=== PATIENT | male | born 1980 | race Caucasian/White ===

== ENCOUNTER 2020-08-09 06:42 | Emergency (ER) | payer SELFPAY ==
--- NOTE | ~2020-08-09 | CT_ITS ---
EXAMINATION: CT abdomen pelvis w con DATE: 08/09/2020 08:54 INDICATION: Right mid abdominal pain. Elevated white blood cell count for several days. Constipation for 5 days. TECHNIQUE: Computed tomography (CT) of the abdomen and pelvis was performed with 100 cc Omnipaque 350 intravenous contrast. Automated exposure control and iterative reconstruction technique were employe d. Exam dose: 569.46 mGy-cm total exam DLP. COMPARISON: None. FINDINGS: 4 mm right lower lobe nodule (series 4 image 2) Normal heart size. No pericardial or pleural effusion. There are multiple small stones in the dependent aspect of the gallbladder. There is thickening/edema of the gallbladder wall, measuring greater than 6 mm maximal thickness. Findings suggest acute estephania cystitis. No intrahepatic or extrahepatic bile duct or pancreatic duct dilatation. No hepatic, splenic, pancreatic, adrenal or renal space-occupying mass lesion is detected. No urinary tract calculus or hydroureteronephrosis. The urinary bladder is unremarkable. Prostate gla nd seminal vesicles appear normal. Normal caliber of the abdominal aorta. No intraperitoneal or retroperitoneal or pelvic mass lesion or adenopathy or ascites. Normal appendix. No bowel obstruction, bowel wall thickening, pneumatosis or intraperitoneal free air . There are some sclerotic opacities of the proximal femurs and L4, likely bone islands. IMPRESSION: Cholelithiasis, thickening/edema of the gallbladder wall, suggesting acute cholecystitis Reviewed, dictated and finalized at [facility]. Reviewed, dictated and finalized at [facility]. IMPRESSION: Cholelithiasis, thickening/edema of the gallbladder wall, suggesti ng acute cholecystitis
--- NOTE | ~2020-08-09 | XR_ITS ---
EXAMINATION: XR abdomen/kub 1V EXAM DATE: 08/09/2020 07:29 INDICATION: Abdominal pain. Symptoms 2 days. TECHNIQUE: Frontal upright projection of the upper abdomen, frontal projection of the lower abdomen f or interpretation. There is no prior study for comparison. FINDINGS: There is expected amount of colonic stool and gas. No small bowel dilation, nonobstructiv e bowel gas pattern. There are no suspicious calcifications identified. There is no organomegaly suspected. The bones are unremarkable. IMPRESSION: Unremarkable abdomen x-ray exam. Reviewed, dictated and finalized at [facility].
[2020-08-09 06:59] VITALS: BP 136/82; PULSE 79; RESP 18; TEMP 37.2; O2SAT 97
--- NOTE | 2020-08-09 07:04 | ED.ABDPAIN ---
HPI - Abdominal Pain General Chief Complaint: Abdominal Pain Stated Complaint: right sided sharp pains Time Seen by Provider: 08/09/20 07:04 Source: patient and RN notes reviewed Mode of arrival: ambulatory Limitations: no limitations History of Present Illness HPI narrative: Patient has had abdominal pain on the right side of his abdomen but also points to a generalized abdominal pain. He states he has not had a bowel movement in 5 days. His pain seems to get worse in the evening and has been going on for the last 2 days. Pain is worse after eating. denies any fever chills vomiting or diarrhea. MD elicited complaint: abdominal pain Onset (ago): day(s) (2) Pain Consistency: intermittent Location: diffuse Severity: moderate Quality: cramping and fullness Radiation: none Migration to: no migration Exacerbating factors: eating Relieving factors: nothing Associated symptoms: vomiting Related Data Home Medications Medication Instructions Recorded Confirmed No Home Medications 08/09/20 08/09/20 Allergies Allergy/AdvReac Type Severity Reaction Status Date / Time No Known Allergies Allergy Verified 08/09/20 07:16 Review of Systems Constitutional: Constitutional: Denies chills and Denies fever(s) Eyes: Eyes: Reports no additional eye complaints ENT: Reports system reviewed and no additional complaints, except as documented Cardiovascular: Cardiovascular: Reports no additional cardiovascular complaints Respiratory: Respiratory: Reports no additional respiratory complaints Musculoskeletal: Musculoskeletal: Reports no additional musculoskeletal complaints Integumentary/Breasts: Skin/Breast: Reports system reviewed and no additional complaints, except as docu Neurologic: Reports system reviewed and no additional complaints, except as documented Endocrine: Endocrine: Reports no additional endocrine complaints [facility] Past Medical History Medical History (Updated 08/09/20 @ 09:38 by Jamie Almeida MD) No active medical problems Surgical History Surgical History (Updated 08/09/20 @ 09:28 by Jamie Almeida MD) H/O neck surgery Social History Social History (Updated 08/09/20 @ 09:28 by Jamie Almeida MD) Smoking packs per day: 2 Smoking cigarettes per day: 40.0 Smoking status: Current every day smoker Tobacco type: cigarettes Alcohol intake: current Alcohol use details: occasional Substance use: never Exam Const: General: healthy appearing, no acute distress and alert Nutritional Appearance: well nourished Orientation/consciousness: patient oriented x3 HENMT: Head: normal to inspection Ears: external ears normal Eyes: Conjunctivae: conjunctivae normal Pupils: Equal, round and reactive pupils present EOM: EOMs intact bilaterally Neck: Neck: normal visual inspection Resp: Effort & Inspection: normal respiratory effort Auscultation: clear to auscultation bilaterally Cardio: Rate: regular rate Rhythm: regular rhythm GI: GI Palp: Yes Soft to palpation and Yes Tenderness to palpation present (GI) Back/Spine/Pelvis: Cervical Spine: cervical ROM normal Thoracic/Lumbar Spine: thoraco-lumbar ROM normal Skin: General skin exam: normal color Rashes: no rashes Neuro: General: patient oriented x3, moves all extremities and no focal motor deficits Speech: normal speech Gait exam (Neuro): Normal gait present Extrem: General: normal to inspection and no clubbing, cyanosis or edema Psych: Appearance: grossly normal and well kempt Mental Status: mental status grossly normal Affect: normal affect Attitude: cooperative Thought content: Yes Normal thought content present Course Course Emergency Course: Patient states he absolutely has to go smoke. I discussed that if he leaves the emergency room these considered discharged. He agrees that he will leave A. His is given instructions on how to get hold of the surgeon at [facility]. Given prescriptions for Bentyl and
[2020-08-09 07:37] LABS: Basophils Absolute Auto 0.08 K/mm3 (0.00-0.10); Basophils Percent Auto 0.4 % (0.0-1.0); Eosinophils Absolute Auto 0.07 K/mm3 (0.02-0.50); Eosinophils Percent Auto 0.4 % (1.0-6.0); Hematocrit 49.3 % (40.0-54.0); Hemoglobin 16.7 g/dL (14.0-18.0); Immature Granulocyte Percent A 0.6 % (0.0-0.0); Lymphocytes Absolute Auto 2.17 K/mm3 (1.10-4.50); Lymphocytes Percent Auto 12.2 % (18.0-42.0); Mean Corpuscular HGB Conc 33.9 g/dL (32.0-36.0); Mean Corpuscular Hemoglobin 30.6 pg (27.0-31.0); Mean Corpuscular Volume 90.3 fL (78.0-102.0); Monocytes Absolute Auto 1.55 K/mm3 (0.10-0.90); Monocytes Percent Auto 8.7 % (2.0-11.0); Neutrophils Absolute Auto 13.8 K/mm3 (1.7-7.2); Neutrophils Percent Auto 77.7 % (50.0-70.0); Platelet Count Result 274 K/mm3 (150-420); Red Blood Count 5.46 M/mm3 (4.70-6.10); Red Cell Distribution Width 13.6 % (11.6-14.4); White Blood Count 17.8 K/mm3 (4.8-10.8)
[2020-08-09 07:56] LABS: Lactic Acid Reflex 1.8 mmol/L (0.4-2.0)
[2020-08-09 08:03] LABS: Alanine Aminotransferase 36 U/L (16-63); Albumin Level 3.9 g/dL (3.4-5.0); Alkaline Phosphatase 87 U/L (46-116); Anion Gap 12 mmol/L (8-16); Aspartate Amino Transferase 13 U/L (15-37); Bilirubin,Total 0.7 mg/dL (0.00-1.00); Blood Urea Nitrogen 11 mg/dL (7-18); Calcium 8.9 mg/dL (8.5-10.1); Carbon Dioxide 25 mmol/L (21-32); Chloride 103 mmol/L (98-108); Estimated CRCL calculation 117 ml/min; Estimated Glomerular Filt Rate > 60; Glucose 106 mg/dL (70-99); Lipase 180 U/L (73-393); Osmolality Calculated 289 mOsm/kg (285-295); Potassium 3.9 mmol/L (3.5-5.1); Sodium 140 mmol/L (136-145); Total Protein 7.5 g/dL (6.4-8.2)
[2020-08-09 08:30] LABS: Add Urine Microscopic? NO; Appearance Urine Clear (Clear); Bilirubin Urine Negative (Negative); Blood Urine Negative (Negative); Color Urine Yellow (Yellow); Glucose Urine UA Negative (Negative); Ketones Urine Negative (Negative); Leukocyte Esterase Ur Negative LEU/UL (Negative); Nitrate Urine Negative (Negative); Protein Urine Negative (Negative); pH Urine 8.5 (5.0-8.0)
--- NOTE | 2020-08-09 08:55 | PC.NURSE ---
pt returns from ct scan, pt rates pain 3/10
--- NOTE | 2020-08-09 09:29 | PC.NURSE ---
call to [facility] for surgical consult. awaiting call from dr carpenter.
--- NOTE | 2020-08-09 09:52 | PC.NURSE ---
pt insisting on smoking a cigarette, explained nothing to eat or drink upon arrival to er. erp explained hospital is a smoke free facility. pt insistant on signing out ama.
== END 2020-08-09 09:53 | disposition left against medical advice (07) ==
PROVIDERS: Emergency Provider Emergency Medicine
DX: K80.00 Calculus of gallbladder with acute cholecystitis without obstruction (principal)
CPT/HCPCS: 36415; 74018; 74177; 80053; 81003; 83605; 83690; 85025; 99283; 99284; Q9965

== ENCOUNTER 2020-08-11 10:43 | Outpatient (CLI) | payer SELFPAY ==
--- NOTE | 2020-08-11 | ECG_ITS ---
Measurements Intervals [place] Rate: 75 P: 26 VA: 165 QRS: 2 QRSD: 80 T: 51 QT: 356 QTc: 400 Interpretive Statements SINUS RHYTHM DELAYED PRECORDIAL R/S TRANSITION BASELINE ARTIFACT- I, II, III, AVR, AVL, AVF BORDERLINE ECG Electronically Signed On 08-11-2020 14:22:54 CDT by García Rutledge D.O.
[2020-08-12 09:09] LABS: Alanine Aminotransferase 27 U/L (4-50); Albumin Level 4.2 g/dL (3.5-5.1); Alkaline Phosphatase 90 U/L (38-126); Amylase 88 U/L (30-110); Aspartate Amino Transferase 41 U/L (17-59); Bilirubin,Total 0.8 mg/dL (0.2-1.3); Lipase 87 U/L (23-300)
== END 2020-08-11 10:44 | disposition home or self-care (01) ==
PROVIDERS: PCP Internal Medicine; Visit Provider Surgery
DX: Z01.818 Encounter for other preprocedural examination (principal); K80.00 Calculus of gallbladder with acute cholecystitis without obstruction
CPT/HCPCS: 36415; 80076; 82150; 83690; 93005

== ENCOUNTER 2020-08-12 02:25 | Outpatient (CLI) | payer OTHER, SELFPAY ==
[2020-08-12 23:12] LABS: SARS-CoV-2 RNA PCR Negative
== END 2020-08-12 02:26 | disposition home or self-care (01) ==
LOC: ANHCOVIDDT 02:25
PROVIDERS: PCP Internal Medicine; Visit Provider Surgery
DX: Z01.812 Encounter for preprocedural laboratory examination (principal); Z20.828 Contact with and (suspected) exposure to other viral communicable diseases
CPT/HCPCS: 87635; C9803; U0003

== ENCOUNTER 2020-08-15 01:11 | Day surgery (SDC) | payer SELFPAY ==
[2020-08-10 17:36] VITALS: BMI 24.3
[2020-08-15] VITALS (8 sets, daily range): BP systolic 110–132; BP diastolic 64–93; PULSE 53–80; RESP 14–16; TEMP 36.6–37.6; O2SAT 94–100
[2020-08-15] MEDS: LACTATED RINGERS 1,000 ML 30 ML IV CONT ×2 (08:06→10:53)
[2020-08-15] MEDS: ACETAMINOPHEN 500 MG TABLET 1000 MG PO (08:08)
[2020-08-15] MEDS: KETOROLAC 15 MG/ML VIAL (*BKC) IV PUSH (08:11)
--- NOTE | 2020-08-15 08:19 | P.PNAN_ITS ---
Anes - Initial Pre Proc Eval Procedure: Operation Date: 08/15/20 09:00 Proposed Procedures p Laparoscopic Cholecystectomy, Possible Intraoperative Cholangiogram, Possible Open - Alistair Tee MD Date/Time: 08/15/20 08:19 Surgeon: Alistair Tee MD Pre Op Diagnosis: Acute Cholecystitis With Cholelithiasis Patient Data Age: 39 Gender: M Height: 5 ft 10 in Weight: 85.2 kg Last Vital Signs Temp 37.6 C 08/15/20 08:12 Pulse 80 08/15/20 08:12 BP 114/77 08/15/20 08:12 Pulse Ox 98 08/15/20 08:12 Allergies Allergy/AdvReac Type Severity Reaction Status Date / Time No Known Allergies Allergy Verified 08/10/20 17:22 Home Medications Medication Instructions Recorded Confirmed Type amoxicillin-pot clavulanate 1 tablet PO Q12H #20 tablet 08/09/20 08/15/20 Rx [Augmentin] dicyclomine 10 mg PO QID PRN #30 cap 08/09/20 08/15/20 Rx hydrocodone 5 mg-acetaminophen 325 1 tablet PO Q6H PRN #20 tablet 08/09/20 08/15/20 Rx mg tablet Patient hx anesthesia problems: none Family hx anesthesia problems: none PMFSH Past Medical History Medical History Heart burn Surgical History Surgical History H/O neck surgery Family History Family History Father Cancer Mother Cancer Social History Social History Smoking packs per day: 2 Smoking cigarettes per day: 40.0 Years smoked: 20 Smoking pack-years: 40.00 Smoking status: Current every day smoker Tobacco type: cigarettes Alcohol intake: never Substance use: current Substance use type: marijuana Other substance usage details: EVERY EVENING Last use: 08/09/2020 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 Questions were solicited and answers provided to the satisfaction of the patient/family/POA.
--- NOTE | 2020-08-15 08:30 | WPDHPUPDATE1 ---
History and Physical Update Update Date/Time: 08/15/20 08:30 History and Physical has been reviewed, including an updated exam of the patient. There are changes in the patient's condition. Patient was seen in the office last week. He was placed on antibiotics. His pain remained fairly minimal as he took 1 pain pill several days but otherwise did well. He has not been running a fever. Labs done Saturday showed no elevated liver function tests. Risks, benefits, and alternatives of a laparoscopic cholecystectomy, possible intraoperative cholangiogram, possible open cholecystectomy have been discussed and questions answered. Patient agrees to proceed with procedure.
--- NOTE | 2020-08-15 08:33 | WPDHPUPDATE1 ---
History and Physical Update Update Date/Time: 08/15/20 08:33 History and Physical has been reviewed, including an updated exam of the patient. There are changes in the patient's condition. Patient was seen in the office last week with CT scan showing cholecystitis. This placed on antibiotics and did well. He took 1 pain pill several days over the weekend but otherwise avoid fatty foods and did okay. Will give the usual preop dose of antibiotics and hold antibiotics after the surgery if there is no significant acute infection. Risks, benefits, and alternatives of a laparoscopic cholecystectomy possible intraoperative cholangiogram, possible open cholecystectomy have been discussed and questions answered. Patient agrees to proceed with procedure.
[2020-08-15] MEDS: ceFAZolin 2 GM/D5W 50 ML 2 GM/50 ML BAG IVPB (08:51)
[2020-08-15] MEDS: BUPIVACAINE/EPINEPHRINE 0.5% 10 ML VIAL 20 ML INFILTRATE (09:12)
--- NOTE | 2020-08-15 11:10 | P.OP_ITS ---
Procedure Note - Detailed Date of procedure: 08/15/20 Pre-op diagnosis: Acute Cholecystitis With Cholelithiasis Chronic Cholecystitis with Cholelithiasis Post-op diagnosis: same Procedure performed: Laparoscopic Cholecystectomy Description of procedure: Patient was seen preoperatively in the holding area and risks, benefits, and alternatives confirmed. Patient was taken to the operating room and general anesthesia was induced. A time out was then preformed with the surgery team confirming patient and site of surgery. The abdomen was prepped and draped in the usual sterile fashion. Incision was made just below the umbilicus with an 11 blade knife. I placed 2 stay sutures of O- Vicryl on either side of the mid- line fascia beneath the umbilicus and was then able to slide in the Hernandez cannula through the fascial defect into the peritoneum. First under low flow and then under high flow the abdomen was insufflated with carbon dioxide never exceeding a pressure of 14. Three 5 mm trocars were then introduced under direct vision. The following trocars were introduced under direct vision: a 5 mm in the epigastrium and two 5 mm trocars along the right costal margin laterally in the subcostal area. There was significant omental adhesions to the underside of the gallbladder. These were taken down with blunt and sharp dissection using some Bovie cautery for hemostasis. We were able to dissect this completely away from the neck of the gallbladder. I then carefully used the L-shaped cautery and the [place] dissector to dissect out the triangle of Calot. I then was able to dissect out both the cystic duct and cystic artery and identify a window of safety. The gall bladder was grasped and the cystic duct and artery were dissected free and clipped with an 5 mm endo-clip stained glass window designer. The cystic duct and artery were clipped with use of 2 clips on the patient's side 1 on the gallbladder side utilizing a 5 mm endoclip- stained glass window designer. The cystic duct was then transected. The cystic artery was also transected at this point. The gall bladder was removed using electrocautery and then removed from the abdomen using a large 10 mm grasper via the umbilical incision. In order to get the large GB that had a thickened wall out of the abdomen I did make the fascial defect slightly larger with Patten scissors. The trocars were removed visualizing hemostasis and the remaining gas evacuated. The large trocar site at the umbilicus was closed with use of the 2 stay sutures of 0 Vicryl mentioned above and also a figure of 8 O-Vicryl suture. The 2 stay sutures mentioned above on either side of the fascia were also tied together to help approximate this midline fascia. Further local anesthetic was placed into each incision for postop pain control. The skin incisions were closed with subcuticular suture of 4-0 Monocryl. Surgical glue then was applied to all the incisions. Patient tolerated the procedure well was taken to the recovery room in good condition. Implants: none Anesthesia: BACILIO Surgeon: Alistair Tee MD Lead Medical Technologist: Elton LING, OR technical administrative assistant Estimated blood loss (mL): 40 Drains: No Packing: No Pathology: yes (Gallbladder) Complications: No immediate complications Condition: stable Disposition: PACU Findings: The gallbladder was thickened and somewhat grayish red in color. There was very dark black bile within the gallbladder.
== END 2020-08-15 12:35 | disposition home or self-care (01) ==
PROVIDERS: PCP Internal Medicine; Visit Provider Surgery
PROC: 0FT44ZZ Resection of Gallbladder, Percutaneous Endoscopic Approach (ICD-10-PCS; CPT 47562; principal; 2020-08-15 09:00)
DX: K80.12 Calculus of gallbladder with acute and chronic cholecystitis without obstruction (principal); F17.210 Nicotine dependence, cigarettes, uncomplicated; F12.90 Cannabis use, unspecified, uncomplicated
CPT/HCPCS: 47562; 88304; A9270; J0690; J1100; J1885; J1940; J2250; J2270; J2405; J2704; J7120